=== PATIENT | male | born 1960 | race Caucasian/White ===

== ENCOUNTER 2018-01-11 02:11 | Inpatient (IN) | payer BC ==
[~2018-01-11] VITALS: Ht 177.8 cm; Wt 86.1 kg
[~2018-01-11 02:11] MED LIST: Aspirin E.C. PO; KEFLEX500 MG PO; LO-DOSE ASPIRIN81 M1 PO; Lotensin PO; METHOCARBAMOL500 MG PO; NAPROSYN500 MG PO; PERCOCET 5/31 TABLET PO; Prevacid PO; TRAMADOL HCL50 MG PO; Zocor PO
[2018-01-11 02:26] LABS: HEMATOCRIT 48.5 % (38.0-50.0); HEMOGLOBIN 16.7 G/DL (12.5-16.6); MCH 32.4 PG (29.0-34.0); MCHC 34.4 G/DL (30.0-36.0); MCV 94.2 FL (86-99); PLATELET COUNT 216 K/uL (156-360); RBC DIS.WIDTH-CV 13.2 % (11.8-14.6); RBC DIS.WIDTH-SD 45.3 % (39-53); RED BLOOD COUNT 5.15 M/uL (4.00-5.50); WHITE BLOOD COUNT 8.5 K/uL (4.1-10.2)
[2018-01-11 02:36] LABS: CHLORIDE 105 mEq/L (99-109); POTASSIUM 3.5 mEq/L (3.7-5.4); SODIUM 138 mEq/L (136-147)
[2018-01-11 02:38] LABS: GLUCOSE 102 mg/dL (70-99)
[2018-01-11 02:42] LABS: GFR ESTIMATE (CALCULATED) > 59 mL/min/ (58.99-99999)
[2018-01-11 02:43] LABS: UREA NITROGEN (BUN) 10 mg/dL (9-23)
[2018-01-11 02:51] LABS: TROP-I INTERPRETATION NEGATIVE; TROPONIN-I 0.02 ng/mL (0.0-0.30)
[2018-01-11 04:53] LABS: TROP-I INTERPRETATION NEGATIVE; TROPONIN-I 0.07 ng/mL (0.0-0.30)
[2018-01-11 07:38] VITALS: BP 129/79
[2018-01-11 11:21] LABS: TROP-I INTERPRETATION NEGATIVE; TROPONIN-I 0.21 ng/mL (0.0-0.30)
[2018-01-11 11:24] LABS: HDL CHOLESTEROL 52 MG/DL (Desirable>=40); LDL CHOLESTEROL 139 mg/dL (Desirable<100); NON-HDL CHOLESTEROL 150 mg/dL (Desirable<160); TOTAL CHOLESTEROL 202 mg/dL (Desirable<200); TRIGLYCERIDES 53 MG/DL (Normal: <150)
[2018-01-11 11:42] VITALS: BP 135/76
[2018-01-11] MEDS ORDERED: THERAGRAN1 TABLET PO (13:28)
[2018-01-11] MEDS ORDERED: ASPIR-LOW81 MG PO (13:28)
[2018-01-11] MEDS ORDERED: THIAMINE HCL100 MG PO (13:28)
[2018-01-11] MEDS ORDERED: NITROSTAT0.4 MG SL (13:28)
[2018-01-11] MEDS ORDERED: FOLIC ACID1 MG PO (13:28)
[2018-01-11] MEDS ORDERED: PANTOPRAZOLE SO40 MG PO (13:28)
[2018-01-11] MEDS ORDERED: NICOTINE PATCH1 EAC2 TD (13:28)
[2018-01-11 16:19] VITALS: BP 132/76
[2018-01-11 17:11] LABS: TROP-I INTERPRETATION INDETERMINATE; TROPONIN-I 0.32 ng/mL (0.0-0.30)
[2018-01-11 19:00] VITALS: BP 130/74
[2018-01-11 22:09] LABS: TROP-I INTERPRETATION INDETERMINATE; TROPONIN-I 0.32 ng/mL (0.0-0.30)
[2018-01-12] VITALS (9 sets, daily range): BP systolic 118–152; BP diastolic 62–88
[2018-01-12 05:51] LABS: HEMATOCRIT 48.2 % (38.0-50.0); HEMOGLOBIN 15.9 G/DL (12.5-16.6); MCH 31.4 PG (29.0-34.0); MCV 95.1 FL (86-99); PLATELET COUNT 199 K/uL (156-360); RBC DIS.WIDTH-CV 13.1 % (11.8-14.6); RBC DIS.WIDTH-SD 46.2 % (39-53); RED BLOOD COUNT 5.07 M/uL (4.00-5.50); TROP-I INTERPRETATION NEGATIVE; TROPONIN-I 0.24 ng/mL (0.0-0.30); WHITE BLOOD COUNT 8.3 K/uL (4.1-10.2)
[2018-01-12 18:03] LABS: INTER. NORMALIZED RATIO 1.1
[2018-01-13 03:56] VITALS: BP 125/69
[2018-01-13 05:53] LABS: HEMATOCRIT 46.8 % (38.0-50.0); HEMOGLOBIN 15.7 G/DL (12.5-16.6); MCH 31.9 PG (29.0-34.0); MCHC 33.5 G/DL (30.0-36.0); MCV 95.1 FL (86-99); PLATELET COUNT 188 K/uL (156-360); RBC DIS.WIDTH-SD 45.7 % (39-53); RED BLOOD COUNT 4.92 M/uL (4.00-5.50); WHITE BLOOD COUNT 7.4 K/uL (4.1-10.2)
[2018-01-13 06:19] LABS: CHLORIDE 106 MEQ/L (99-109); CREATININE 0.8 MG/DL (0.6-1.3); GFR ESTIMATE (CALCULATED) > 59 mL/min/ (58.99-99999); GLUCOSE 98 mg/dL (70-99); SODIUM 137 MEQ/L (136-147); UREA NITROGEN (BUN) 14 mg/dL (9-23)
[2018-01-13 06:24] LABS: POTASSIUM 4.5 MEQ/L (3.7-5.4)
[2018-01-13 09:21] VITALS: BP 137/88
[2018-01-13 12:01] VITALS: BP 134/80
[2018-01-13 16:50] VITALS: BP 152/92
[2018-01-13 19:56] VITALS: BP 131/79
[2018-01-13 23:58] VITALS: BP 128/64
[2018-01-14] VITALS (8 sets, daily range): BP systolic 121–181; BP diastolic 72–103
[2018-01-14 11:24] LABS: HEMATOCRIT 48.8 % (38.0-50.0); HEMOGLOBIN 16.2 G/DL (12.5-16.6); MCH 31.2 PG (29.0-34.0); MCHC 33.2 G/DL (30.0-36.0); PLATELET COUNT 216 K/uL (156-360); RBC DIS.WIDTH-CV 12.8 % (11.8-14.6); RED BLOOD COUNT 5.19 M/uL (4.00-5.50); WHITE BLOOD COUNT 7.5 K/uL (4.1-10.2)
[2018-01-14 11:40] LABS: TROP-I INTERPRETATION NEGATIVE; TROPONIN-I 0.09 ng/mL (0.0-0.30)
[2018-01-14 11:53] LABS: CHLORIDE 109 MEQ/L (99-109); CREATININE 0.9 MG/DL (0.6-1.3); GFR ESTIMATE (CALCULATED) > 59 mL/min/ (58.99-99999); GLUCOSE 123 mg/dL (70-99); POTASSIUM 4.4 MEQ/L (3.7-5.4); SODIUM 140 MEQ/L (136-147); UREA NITROGEN (BUN) 19 mg/dL (9-23)
[2018-01-14 16:39] LABS: HDL CHOLESTEROL 47 MG/DL (Desirable>=40); LDL CHOLESTEROL 109 mg/dL (Desirable<100); NON-HDL CHOLESTEROL 132 mg/dL (Desirable<160); TOTAL CHOLESTEROL 179 mg/dL (Desirable<200); TRIGLYCERIDES 113 MG/DL (Normal: <150)
[2018-01-14 17:13] LABS: TROP-I INTERPRETATION NEGATIVE; TROPONIN-I 0.09 ng/mL (0.0-0.30)
[2018-01-14 22:10] LABS: TROP-I INTERPRETATION NEGATIVE; TROPONIN-I 0.08 ng/mL (0.0-0.30)
[2018-01-15] VITALS: BP 118/78
[2018-01-15 04:29] VITALS: BP 121/75
[2018-01-15 06:53] LABS: HEMATOCRIT 48.4 % (38.0-50.0); HEMOGLOBIN 16.1 G/DL (12.5-16.6); MCH 31.5 PG (29.0-34.0); MCHC 33.3 G/DL (30.0-36.0); MCV 94.7 FL (86-99); PLATELET COUNT 217 K/uL (156-360); RBC DIS.WIDTH-CV 12.8 % (11.8-14.6); RBC DIS.WIDTH-SD 44.6 % (39-53); RED BLOOD COUNT 5.11 M/uL (4.00-5.50); WHITE BLOOD COUNT 8.3 K/uL (4.1-10.2)
[2018-01-15 07:23] LABS: CHLORIDE 108 MEQ/L (99-109); CREATININE 0.8 MG/DL (0.6-1.3); GFR ESTIMATE (CALCULATED) > 59 mL/min/ (58.99-99999); GLUCOSE 105 mg/dL (70-99); POTASSIUM 4.3 MEQ/L (3.7-5.4); SODIUM 139 MEQ/L (136-147); UREA NITROGEN (BUN) 18 mg/dL (9-23)
[2018-01-15 08:12] VITALS: BP 115/79
[2018-01-15 12:32] VITALS: BP 116/74
[2018-01-15 20:19] VITALS: BP 111/64
[2018-01-16 00:20] VITALS: BP 111/75
[2018-01-16 05:42] VITALS: BP 114/65
[2018-01-16 07:24] VITALS: BP 122/95
[2018-01-16] MEDS ORDERED: CLOPIDOGREL75 MG PO (11:21)
[2018-01-16] MEDS ORDERED: ATORVASTATIN CA40 MG PO (11:21)
[2018-01-16] MEDS ORDERED: METOPROLOL TART25 MG PO (11:37)
[2018-01-17 09:05] LABS: HEMOGLOBIN A1c (GLYCOHEMOGLOB) 5.2 % (Below 5.7)
== END 2018-01-16 12:14 | disposition home or self-care (01) | DRG 247 ==
LOC: EME → EDBD 02:11 → EME 02:11 → EDOF 05:32 → ENRESERV 05:44 → 4SOUTH 07:25 → ENRESERV 01-12 15:32 → 4SOUTH 01-12 15:59 → 4EAST 01-12 17:16
PROVIDERS: Emergency Medicine; Hospitalist; Internal Medicine Cardiovascular Disease; Physician Assistant Medical
DX: I21.4 Non-ST elevation (NSTEMI) myocardial infarction (principal); I25.110 Atherosclerotic heart disease of native coronary artery with unstable angina pectoris; I77.2 Rupture of artery; T80.818A Extravasation of other vesicant agent, initial encounter; I97.51 Accidental puncture and laceration of a circulatory system organ or structure during a circulatory system procedure; I10 Essential (primary) hypertension; Z82.49 Family history of ischemic heart disease and other diseases of the circulatory system; E78.5 Hyperlipidemia, unspecified; K21.9 Gastro-esophageal reflux disease without esophagitis; F10.20 Alcohol dependence, uncomplicated; G89.29 Other chronic pain; M54.5 Low back pain; E66.9 Obesity, unspecified; Z68.26 Body mass index [BMI] 26.0-26.9, adult; F17.210 Nicotine dependence, cigarettes, uncomplicated; Y84.0 Cardiac catheterization as the cause of abnormal reaction of the patient, or of later complication, without mention of misadventure at the time of the procedure; Y92.234 Operating room of hospital as the place of occurrence of the external cause; Z71.6 Tobacco abuse counseling; R55 Syncope and collapse
CPT/HCPCS: 70450; 70496; 70498; 70551; 71046; 78452; 80048; 80061; 82948; 83036; 83605; 84484; 85027; 85347; 85610; 85730; 93005; 93017; 93882; 99281; 99285; A9500; C1725; C1769; C1874; C1887; C1894; J1644; J2250; J2720; J2785; J3010; J3246; J3411; J7030; J7040